=== PATIENT | female | born 1950 ===

== ENCOUNTER 2018-02-11 08:32 | Day surgery (SDC) | payer OTHER ==
[~2018-02-11] VITALS: Ht 170.2 cm; Wt 180.0 kg
[~2018-02-11 08:32] MED LIST: CALCIUM600 MG PO; COZAAR25 MG PO; SYNTHROID125 MCG PO; ZOCOR20 MG PO
[2018-02-12] MEDS ORDERED: PERCOCET 5-3251 EACH PO (08:31)
== END 2018-02-12 08:00 | disposition home or self-care (01) ==
LOC: CIR.AMB 08:32 → O/R 15:22 → CIR.AMB 15:22 → SURG 15:22 → O/R 15:45 → CIR.AMB 02-12 08:00 → SURG 02-12 11:30
DX: E06.3 Autoimmune thyroiditis (principal); E78.00 Pure hypercholesterolemia, unspecified; I11.9 Hypertensive heart disease without heart failure; E03.8 Other specified hypothyroidism